=== PATIENT | female | born 1940 | race Caucasian/White ===

== ENCOUNTER → 2016-08-23 | Outpatient (CLI) | payer MEDICARE, OTHER ==
[~2016-08-23] MED LIST: CALCIUM 500 +1 EACH PO; CHLOR-TRIMETON4 MG PO; KLOR-CON M2020 MEQ PO; LANSOPRAZOLE30 MG PO; MAXZIDE-25MG 371 TAB PO; PROVENTIL OR V6.7 GM INH; SENNA S TABLET1 EACH PO; SINGULAIR10 MG PO; VITAMIN D1000 UNIT PO
== END | disposition disaster alternative care site (69) ==
LOC: GBCOE 11:49
DX: M85.80 Other specified disorders of bone density and structure, unspecified site (principal); M81.0 Age-related osteoporosis without current pathological fracture; E83.52 Hypercalcemia; Z91.89 Other specified personal risk factors, not elsewhere classified

== ENCOUNTER → 2016-11-10 | Outpatient (CLI) | payer MEDICARE, OTHER | LOC: LGSMG 09:10 | DX: M81.0 Age-related osteoporosis without current pathological fracture (principal) ==

== ENCOUNTER → 2016-11-16 | Outpatient (CLI) | payer MEDICARE, OTHER | END | disposition disaster alternative care site (69) | LOC: GBCOE 11-13 12:30 | DX: Z12.31 Encounter for screening mammogram for malignant neoplasm of breast (principal) | CPT/HCPCS: G0202 ==